=== PATIENT | male | born 1945 | race Caucasian/White ===

== ENCOUNTER 2017-12-09 06:10 | Inpatient (IN) | payer MEDICARE, BC ==
[~2017-12-09] VITALS: Ht 5871 cm; Wt 86.4 kg
[~2017-12-09 06:10] MED LIST: APIX5TAB3 PO; ATOR40TA PO; CLOP75TA15 PO; FLO0.4C PO; HYDR-565 PO; LANS15CA10 PO; LEVO750T46 PO; LOSA50TA3 PO; NALO25TA PO; NITR0.4T48 SL; PREG200C PO; ZOLP10TA PO
[2017-12-09] MEDS ORDERED: morphine 4 MG/ML inj SYRINge IV ONE ×2 (07:00→08:10)
[2017-12-09] MEDS ORDERED: pantoprazole 40 MG vial IV ONE (07:00)
[2017-12-09] MEDS ORDERED: normal saline 1000ML IV soln IVB ONE (07:00)
[2017-12-09] MEDS ORDERED: metoclopramide 5 mg/ml inj IV ONE (07:25)
[2017-12-09] MEDS ORDERED: proCHLORperazine 10 MG/2 ml inj IV ONE (07:30)
[2017-12-09 08:26] LABS: BASOPHILS % (AUTO) 0 % (0-1); EOSINOPHILS # (AUTO) 0.1 X10'3 (0-0.9); EOSINOPHILS % (AUTO) 1.2 % (0-6); HEMATOCRIT 43.6 % (42.0-52.0); HEMOGLOBIN 14.4 g/dl (14.0-17.9); LYMPHOCYTES # (AUTO) 0.4 X10'3 (1.1-4.8); LYMPHOCYTES % (AUTO) 3.2 % (21-51); MEAN CORPUSCULAR HEMOGLOBIN 28.8 PG (27.0-31.0); MEAN CORPUSCULAR HGB CONC 33.1 % (33.0-36.5); MEAN CORPUSCULAR VOLUME 87.2 FL (78-98); MEAN PLATELET VOLUME 7.9 FL (7.4-10.4); MONOCYTES # (AUTO) 0.3 X10'3 (0-0.9); MONOCYTES % (AUTO) 2.7 % (2-12); NEUTROPHILS # (AUTO) 10.4 X10'3 (1.8-7.7); NEUTROPHILS % (AUTO) 92.9 % (42-75); PLATELET COUNT 216 X10'3 (140-440); RED CELL DISTRIBUTION WIDTH 18.2 % (11.5-14.5); WHITE BLOOD COUNT 11.2 X10'3 (4.5-11.0)
[2017-12-09 08:43] LABS: ALANINE AMINOTRANSFERASE 28 U/L (12-78); ALBUMIN 3.9 G/DL (3.4-5.0); ALBUMIN/GLOBULIN RATIO 1.3 (1.1-1.5); ALKALINE PHOSPHATASE 68 IU/L (46-116); ANION GAP 12 (8-16); ASPARTATE AMINO TRANSFERASE 31 U/L (10-37); BILIRUBIN,TOTAL 0.3 MG/DL (0.1-1.0); BLOOD UREA NITROGEN 24 MG/DL (7-18); BUN/CREATININE RATIO 16.7 (5.4-32.0); CALCIUM 8.6 MG/DL (8.5-10.1); CHLORIDE 102 MMOL/L (99-107); CREATININE 1.44 MG/DL (0.60-1.10); GLUCOSE 109 MG/DL (70-104); LIPASE 175 U/L (73-393); POTASSIUM 4.3 MMOL/L (3.5-5.1); SODIUM 140 MMOL/L (135-145); TOTAL CARBON DIOXIDE 26.2 MMOL/L (24-32); eGFR 48 ML/MIN
[2017-12-09 08:44] LABS: INR 1.1 INR; PARTIAL THROMBOPLASTIN TIME 23 SECONDS (22-32); PROTHROMBIN TIME 11.4 SECONDS (9.0-12.0)
[2017-12-09 09:31] LABS: OCCULT BLOOD STOOL NEGATIVE (Neg)
[2017-12-09] MEDS ORDERED: MIRA50TA (10:53)
[2017-12-09] MEDS ORDERED: CELE-85 (10:53)
[2017-12-09] MEDS ORDERED: METO25TA6 (10:53)
[2017-12-09] MEDS ORDERED: ROSU40TA29 (10:53)
[2017-12-09] MEDS ORDERED: PANT40TA4 (10:53)
[2017-12-09] MEDS ORDERED: magnesium hydroxide 30ml (MOM) UD suspension PO PRN (11:35)
[2017-12-09] MEDS ORDERED: magnesium 4gm in 100ml NS 100 ML IV PRN (11:35)
[2017-12-09] MEDS ORDERED: ondansetron/PF 4mg/2ml inj IV PRN (11:35)
[2017-12-09] MEDS ORDERED: potassium Cl 40MEQ/NS 500ml 500 ML IV PRN ×2 (11:35)
[2017-12-09] MEDS ORDERED: magnesium Cl slow-release 64mg tablet PO PRN (11:35)
[2017-12-09] MEDS ORDERED: magnesium 2GM in 50ml NS 50 ML IV PRN (11:35)
[2017-12-09] MEDS ORDERED: mag hydrox/Alum hydrox/simeth 30ml oral suspension PO PRN (11:35)
[2017-12-09] MEDS ORDERED: potassium Cl 20 mEq SR tablet PO PRN ×2 (11:35)
[2017-12-09] MEDS: normal saline 1000ml 1,000 ML IV SCH (12:30)
[2017-12-09 13:04] LABS: CLARITY,URINE CLEAR (Clear); GLUCOSE, URINE NEGATIVE (Neg); KETONES,URINE TRACE mg/dl (Neg); LEUKOCYTE ESTERASE ,URINE NEGATIVE (Neg); NITRITES, URINE NEGATIVE (Neg); OCCULT BLOOD,URINE NEGATIVE (Neg); PROTEIN,URINE TRACE mg/dl (Neg); UROBILINOGEN,URINE 0.2 E.U/dL (0.2-1.0)
[2017-12-09 13:06] LABS: UA COLLECTION TYPE URINAL
[2017-12-09 13:07] LABS: COLOR,URINE DARK YELLOW (Yellow)
[2017-12-09 13:09] LABS: BACTERIA,URINE NONE SEEN /HPF (Neg); MUCUS STRANDS FEW /LPF (Neg); RBC,URINE 0-2 /HPF (0-2); SQUAMOUS EPITHELIAL CELL,UR FEW /LPF (FEW); WBC,URINE 0-4 /HPF (0-4)
[2017-12-09 13:10] LABS: COARSE GRANULAR CAST 0-3 /LPF (NEGATIVE)
[2017-12-09] MEDS ORDERED: morphine 2 MG/ML inj. syringe IV PRN (14:30)
[2017-12-09] MEDS: morphine 4 MG/ML inj SYRINge IV PRN ×3 (14:39→23:52)
[2017-12-09] MEDS ORDERED: heparin 10,000 units/1 ML INJ IV ONE (16:30)
[2017-12-09] MEDS ORDERED: heparin 10,000 units/1 ML INJ IV PRN (16:30)
[2017-12-09] MEDS: clopidogrel 75mg tablet PO SCH (17:04)
[2017-12-09] MEDS: tamsulosin 0.4mg capsule PO SCH (17:05)
[2017-12-09 17:16] LABS: CREATINE KINASE 114 U/L (39-308)
[2017-12-09 17:40] LABS: BASOPHILS % (AUTO) 0.1 % (0-1); EOSINOPHILS % (AUTO) 0.2 % (0-6); HEMATOCRIT 37.1 % (42.0-52.0); LYMPHOCYTES # (AUTO) 0.4 X10'3 (1.1-4.8); LYMPHOCYTES % (AUTO) 4.5 % (21-51); MEAN CORPUSCULAR HEMOGLOBIN 28.3 PG (27.0-31.0); MEAN CORPUSCULAR HGB CONC 32.4 % (33.0-36.5); MEAN CORPUSCULAR VOLUME 87.5 FL (78-98); MEAN PLATELET VOLUME 7.9 FL (7.4-10.4); MONOCYTES # (AUTO) 0.8 X10'3 (0-0.9); MONOCYTES % (AUTO) 9.4 % (2-12); NEUTROPHILS # (AUTO) 6.9 X10'3 (1.8-7.7); NEUTROPHILS % (AUTO) 85.8 % (42-75); PLATELET COUNT 173 X10'3 (140-440); RED BLOOD COUNT 4.23 X10'6 (4.70-6.10); RED CELL DISTRIBUTION WIDTH 18.1 % (11.5-14.5)
[2017-12-09 17:53] LABS: TOTAL CELLS COUNTED 100
[2017-12-09 17:55] LABS: ANISOCYTOSIS 2+; PLATELET ESTIMATE NORMAL
[2017-12-09 18:00] LABS: TOXIC GRANULATION 1+
[2017-12-09 18:11] LABS: INR 1.3 INR; PROTHROMBIN TIME 13.3 SECONDS (9.0-12.0)
[2017-12-09 18:13] LABS: PARTIAL THROMBOPLASTIN TIME > 153 SECONDS (22-32)
[2017-12-09] MEDS: pregabalin 25mg capsule PO SCH (20:48)
[2017-12-09] MEDS: pantoprazole 40mg Tablet.DR PO SCH (20:49)
[2017-12-09] MEDS: carvedilol 6.25mg tablet PO SCH (20:49)
[2017-12-09] MEDS: pregabalin 75mg capsule PO SCH (20:49)
[2017-12-09] MEDS: losartan 25mg tablet PO SCH (20:52)
[2017-12-09] MEDS ORDERED: non-formulary drug (Pregabalin (Lyrica) 1 CAP) PO SCH (21:00)
[2017-12-09 22:38] VITALS: BP 131/52
[2017-12-10] VITALS (9 sets, daily range): BP systolic 138–172; BP diastolic 40–74
[2017-12-10] MEDS: normal saline 1000ml 1,000 ML IV SCH ×2 (04:20→21:19)
[2017-12-10] MEDS: tamsulosin 0.4mg capsule PO SCH (07:47)
[2017-12-10] MEDS: clopidogrel 75mg tablet PO SCH (07:47)
[2017-12-10] MEDS: pantoprazole 40mg Tablet.DR PO SCH ×3 (07:47→21:01)
[2017-12-10] MEDS: carvedilol 6.25mg tablet PO SCH ×2 (07:47→21:03)
[2017-12-10] MEDS: morphine 4 MG/ML inj SYRINge IV PRN ×4 (07:48→23:23)
[2017-12-10] MEDS: K and/or MAG REPLACEMENT MC SCH (08:00)
[2017-12-10] MEDS: atorvastatin 20mg tablet PO SCH ×2 (08:00)
[2017-12-10 08:08] LABS: BASOPHILS % (AUTO) 0.2 % (0-1); EOSINOPHILS # (AUTO) 0.2 X10'3 (0-0.9); EOSINOPHILS % (AUTO) 2.2 % (0-6); HEMATOCRIT 33.4 % (42.0-52.0); HEMOGLOBIN 11.2 g/dl (14.0-17.9); LYMPHOCYTES # (AUTO) 0.6 X10'3 (1.1-4.8); LYMPHOCYTES % (AUTO) 8.1 % (21-51); MEAN CORPUSCULAR HGB CONC 33.4 % (33.0-36.5); MEAN CORPUSCULAR VOLUME 86.7 FL (78-98); MEAN PLATELET VOLUME 8.1 FL (7.4-10.4); MONOCYTES # (AUTO) 0.6 X10'3 (0-0.9); MONOCYTES % (AUTO) 8.7 % (2-12); NEUTROPHILS # (AUTO) 5.7 X10'3 (1.8-7.7); NEUTROPHILS % (AUTO) 80.8 % (42-75); PLATELET COUNT 151 X10'3 (140-440); RED BLOOD COUNT 3.85 X10'6 (4.70-6.10); RED CELL DISTRIBUTION WIDTH 17.6 % (11.5-14.5); WHITE BLOOD COUNT 7.1 X10'3 (4.5-11.0)
[2017-12-10 08:16] LABS: ALANINE AMINOTRANSFERASE 24 U/L (12-78); ALBUMIN 2.7 G/DL (3.4-5.0); ALKALINE PHOSPHATASE 41 IU/L (46-116); ANION GAP 11 (8-16); ASPARTATE AMINO TRANSFERASE 26 U/L (10-37); BILIRUBIN,TOTAL 0.3 MG/DL (0.1-1.0); BLOOD UREA NITROGEN 26 MG/DL (7-18); BUN/CREATININE RATIO 31.7 (5.4-32.0); CALCIUM 8.1 MG/DL (8.5-10.1); CHLORIDE 106 MMOL/L (99-107); CREATININE 0.82 MG/DL (0.60-1.10); GLUCOSE 107 MG/DL (70-104); MAGNESIUM 1.9 MG/DL (1.5-2.4); POTASSIUM 4.5 MMOL/L (3.5-5.1); SODIUM 141 MMOL/L (135-145); TOTAL CARBON DIOXIDE 23.9 MMOL/L (24-32); TOTAL PROTEIN 5.4 G/DL (6.4-8.2); eGFR > 90 ML/MIN
[2017-12-10] MEDS: acetaminophen 325mg tablet PO PRN ×2 (10:06→16:51)
[2017-12-10] MEDS: pregabalin 25mg capsule PO SCH (20:57)
[2017-12-10] MEDS: pregabalin 75mg capsule PO SCH (20:58)
[2017-12-10] MEDS: losartan 25mg tablet PO SCH (21:03)
[2017-12-11] MEDS: acetaminophen 325mg tablet PO PRN (00:26)
[2017-12-11 02:00] VITALS: BP 159/50
[2017-12-11] MEDS: morphine 4 MG/ML inj SYRINge IV PRN (04:10)
[2017-12-11 05:19] LABS: BASOPHILS % (AUTO) 0.3 % (0-1); EOSINOPHILS # (AUTO) 0.1 X10'3 (0-0.9); EOSINOPHILS % (AUTO) 2.5 % (0-6); HEMOGLOBIN 10.5 g/dl (14.0-17.9); LYMPHOCYTES # (AUTO) 0.5 X10'3 (1.1-4.8); LYMPHOCYTES % (AUTO) 7.7 % (21-51); MEAN CORPUSCULAR HEMOGLOBIN 28.6 PG (27.0-31.0); MEAN CORPUSCULAR HGB CONC 32.7 % (33.0-36.5); MEAN CORPUSCULAR VOLUME 87.5 FL (78-98); MEAN PLATELET VOLUME 8.6 FL (7.4-10.4); MONOCYTES # (AUTO) 0.5 X10'3 (0-0.9); MONOCYTES % (AUTO) 7.9 % (2-12); NEUTROPHILS # (AUTO) 4.8 X10'3 (1.8-7.7); NEUTROPHILS % (AUTO) 81.6 % (42-75); PLATELET COUNT 159 X10'3 (140-440); RED BLOOD COUNT 3.66 X10'6 (4.70-6.10); RED CELL DISTRIBUTION WIDTH 17.8 % (11.5-14.5); WHITE BLOOD COUNT 5.9 X10'3 (4.5-11.0)
[2017-12-11 05:46] LABS: ALANINE AMINOTRANSFERASE 23 U/L (12-78); ALBUMIN 2.8 G/DL (3.4-5.0); ALKALINE PHOSPHATASE 42 IU/L (46-116); ANION GAP 9 (8-16); ASPARTATE AMINO TRANSFERASE 31 U/L (10-37); BILIRUBIN,TOTAL 0.4 MG/DL (0.1-1.0); BLOOD UREA NITROGEN 17 MG/DL (7-18); BUN/CREATININE RATIO 23.3 (5.4-32.0); CALCIUM 8.4 MG/DL (8.5-10.1); CHLORIDE 107 MMOL/L (99-107); CREATININE 0.73 MG/DL (0.60-1.10); GLUCOSE 106 MG/DL (70-104); MAGNESIUM 1.7 MG/DL (1.5-2.4); POTASSIUM 4.2 MMOL/L (3.5-5.1); SODIUM 139 MMOL/L (135-145); TOTAL CARBON DIOXIDE 22.9 MMOL/L (24-32); TOTAL PROTEIN 5.5 G/DL (6.4-8.2); eGFR > 90 ML/MIN
[2017-12-11 06:00] VITALS: BP 163/43
[2017-12-11] MEDS: pantoprazole 40mg Tablet.DR PO SCH ×2 (07:30→09:17)
[2017-12-11] MEDS: K and/or MAG REPLACEMENT MC SCH (08:00)
[2017-12-11] MEDS: atorvastatin 20mg tablet PO SCH ×2 (08:00→09:20)
[2017-12-11] MEDS: tamsulosin 0.4mg capsule PO SCH (09:15)
[2017-12-11] MEDS: losartan 25mg tablet PO SCH (09:16)
[2017-12-11] MEDS: clopidogrel 75mg tablet PO SCH (09:17)
[2017-12-11] MEDS: carvedilol 6.25mg tablet PO SCH (09:19)
[2017-12-11 11:00] VITALS: BP 166/64
== END 2017-12-11 15:50 | disposition home or self-care (01) | DRG 388 ==
LOC: ER 06:10 → ED HOLD 11:31 → EDBEDREQ 22:11 → EDBEDREQTM 22:11 → PCU 3S 22:40
PROVIDERS: ADMIT Internal Medicine; ATTEND Internal Medicine
DX: K56.609 Unspecified intestinal obstruction, unspecified as to partial versus complete obstruction (principal); N17.0 Acute kidney failure with tubular necrosis; I48.91 Unspecified atrial fibrillation; E78.5 Hyperlipidemia, unspecified; E86.0 Dehydration; I10 Essential (primary) hypertension; G89.29 Other chronic pain; R55 Syncope and collapse; I25.10 Atherosclerotic heart disease of native coronary artery without angina pectoris; N40.0 Benign prostatic hyperplasia without lower urinary tract symptoms; Z90.49 Acquired absence of other specified parts of digestive tract; Z95.1 Presence of aortocoronary bypass graft; Z79.01 Long term (current) use of anticoagulants; Z79.899 Other long term (current) drug therapy; Z91.018 Allergy to other foods
CPT/HCPCS: 36415; 71045; 73502; 74176; 80053; 81001; 82272; 82550; 83605; 83690; 83735; 83880; 84484; 85025; 85610; 85730; 86885; 86900; 86901; 87040; 87070; 93005; 93306; 93880; 96361; 96374; 96375; 96376; 99285; A6213; C9113; J0780; J1644; J2270; J7030

== ENCOUNTER 2018-03-19 09:34 | Inpatient (IN) | payer MEDICARE, BC ==
[~2018-03-19] VITALS: Ht 177.8 cm; Wt 79.0 kg
[~2018-03-19 09:34] MED LIST changes: -APIX5TAB3 PO; -LEVO750T46 PO; +MIRA50TA; -NITR0.4T48 SL; +PANT40TA4
[2018-03-19] MEDS ORDERED: vancomycin inj 1,000 MG in normal saline 250ml IV soln 250 ML IV STA (10:06)
[2018-03-19] MEDS ORDERED: levoFLOXACIN-Levaquin 750MG/D5 150 ML IV STA (10:06)
[2018-03-19] MEDS ORDERED: normal saline 1000ML IV soln IVB ONE (10:10)
[2018-03-19] MEDS ORDERED: METO25TA6 PO (10:16)
[2018-03-19] MEDS ORDERED: ROSU5TAB PO (10:17)
[2018-03-19] MEDS ORDERED: CELE-193 PO (10:18)
[2018-03-19] MEDS ORDERED: APIX5TAB3 PO (10:19)
[2018-03-19] MEDS ORDERED: vancomycin/NS 1 GM ADD-VANTAGE 250 ML IV STA (10:33)
[2018-03-19 10:38] LABS: BASOPHILS % (AUTO) 0.1 % (0-1); EOSINOPHILS # (AUTO) 0.1 X10'3 (0-0.9); EOSINOPHILS % (AUTO) 1.5 % (0-6); HEMATOCRIT 29.6 % (42.0-52.0); HEMOGLOBIN 9.8 g/dl (14.0-17.9); LYMPHOCYTES # (AUTO) 0.2 X10'3 (1.1-4.8); LYMPHOCYTES % (AUTO) 2.5 % (21-51); MEAN CORPUSCULAR HEMOGLOBIN 28.7 PG (27.0-31.0); MEAN CORPUSCULAR VOLUME 86.9 FL (78-98); MEAN PLATELET VOLUME 8.2 FL (7.4-10.4); MONOCYTES # (AUTO) 0.4 X10'3 (0-0.9); MONOCYTES % (AUTO) 3.9 % (2-12); NEUTROPHILS # (AUTO) 8.9 X10'3 (1.8-7.7); PLATELET COUNT 172 X10'3 (140-440); RED CELL DISTRIBUTION WIDTH 19.2 % (11.5-14.5); WHITE BLOOD COUNT 9.7 X10'3 (4.5-11.0)
[2018-03-19 10:47] LABS: INR 1.1 INR; PARTIAL THROMBOPLASTIN TIME 35 SECONDS (22-32); PROTHROMBIN TIME 11.1 SECONDS (9.0-12.0)
[2018-03-19 11:03] LABS: ALANINE AMINOTRANSFERASE 20 U/L (12-78); ALBUMIN 2.7 G/DL (3.4-5.0); ALBUMIN/GLOBULIN RATIO 0.8 (1.1-1.5); ALKALINE PHOSPHATASE 61 IU/L (46-116); ANION GAP 7 (8-16); ASPARTATE AMINO TRANSFERASE 37 U/L (10-37); BILIRUBIN,TOTAL 0.3 MG/DL (0.1-1.0); BLOOD UREA NITROGEN 35 MG/DL (7-18); BUN/CREATININE RATIO 26.5 (5.4-32.0); CALCIUM 8.4 MG/DL (8.5-10.1); CHLORIDE 103 MMOL/L (99-107); CREATININE 1.32 MG/DL (0.60-1.10); GLUCOSE 105 MG/DL (70-104); POTASSIUM 3.7 MMOL/L (3.5-5.1); SODIUM 141 MMOL/L (135-145); TOTAL CARBON DIOXIDE 30.7 MMOL/L (24-32); TOTAL PROTEIN 6.3 G/DL (6.4-8.2); eGFR 53 ML/MIN
[2018-03-19] MEDS ORDERED: acetaminophen 325mg tablet ONE (11:12)
[2018-03-19 11:29] LABS: CLARITY,URINE CLEAR (Clear); COLOR,URINE YELLOW (Yellow); GLUCOSE, URINE NEGATIVE (Neg); KETONES,URINE NEGATIVE (Neg); LEUKOCYTE ESTERASE ,URINE NEGATIVE (Neg); NITRITES, URINE NEGATIVE (Neg); OCCULT BLOOD,URINE NEGATIVE (Neg); PROTEIN,URINE 30 mg/dl (Neg); UROBILINOGEN,URINE 0.2 E.U/dL (0.2-1.0)
[2018-03-19 11:30] LABS: UA COLLECTION TYPE CLN CATCH MIDSTREAM
[2018-03-19 11:39] LABS: D-DIMER 1.32 MG/L FEU (0-0.50)
[2018-03-19 11:40] LABS: BACTERIA,URINE NONE SEEN /HPF (Neg); RBC,URINE 0-2 /HPF (0-2); SQUAMOUS EPITHELIAL CELL,UR FEW /LPF (FEW); WBC,URINE 0-4 /HPF (0-4)
[2018-03-19] MEDS ORDERED: iohexol 350MG/ML 100ml bottle IV ONE (12:29)
[2018-03-19] MEDS ORDERED: aspirin 325mg tablet PO ONE (12:35)
[2018-03-19 13:14] LABS: CHOL/HDL RATIO 2.2 (0.00-4.99); CHOLESTEROL 76 MG/DL (0-200); HDL CHOLESTEROL 35 MG/DL (35-60); LDL CHOLESTEROL 30 MG/DL (50-100); TRIGLYCERIDES 54 MG/DL (20-135)
[2018-03-19] MEDS ORDERED: acetaminophen 325mg tablet PO PRN (13:25)
[2018-03-19] MEDS ORDERED: mag hydrox/Alum hydrox/simeth 30ml oral suspension PO PRN (13:25)
[2018-03-19] MEDS ORDERED: magnesium hydroxide 30ml (MOM) UD suspension PO PRN (13:25)
[2018-03-19] MEDS ORDERED: ondansetron/PF 4mg/2ml inj IV PRN (13:25)
[2018-03-19] MEDS ORDERED: morphine 4 MG/ML inj SYRINge IV PRN (13:25)
[2018-03-19 14:16] LABS: MAGNESIUM 2.1 MG/DL (1.5-2.4); PHOSPHORUS 2.4 MG/DL (2.3-4.5)
[2018-03-19] MEDS: morphine 4 MG/ML inj SYRINge IV PRN ×2 (17:16→21:50)
[2018-03-19] MEDS ORDERED: enoxaparin 80mg/0.8ml syringe SUBCUT ONE (18:40)
[2018-03-19 19:00] VITALS: BP 127/55
[2018-03-19] MEDS: furosemide 20 MG/2 ML vial IV SCH (19:40)
[2018-03-19] MEDS: metoprolol tartrate 25mg tablet PO SCH (19:40)
[2018-03-19] MEDS: pregabalin 25mg capsule PO SCH (21:48)
[2018-03-19] MEDS: zolpidem 5mg tablet PO PRN (22:30)
[2018-03-19 23:00] VITALS: BP 133/57
[2018-03-20 03:00] VITALS: BP 92/50
[2018-03-20 06:00] VITALS: BP 145/63
[2018-03-20 06:07] LABS: BASOPHILS % (AUTO) 0.1 % (0-1); EOSINOPHILS # (AUTO) 0.1 X10'3 (0-0.9); EOSINOPHILS % (AUTO) 0.7 % (0-6); HEMATOCRIT 25.8 % (42.0-52.0); HEMOGLOBIN 8.4 g/dl (14.0-17.9); LYMPHOCYTES # (AUTO) 0.4 X10'3 (1.1-4.8); LYMPHOCYTES % (AUTO) 5.1 % (21-51); MEAN CORPUSCULAR HEMOGLOBIN 28.2 PG (27.0-31.0); MEAN CORPUSCULAR HGB CONC 32.5 % (33.0-36.5); MEAN CORPUSCULAR VOLUME 86.7 FL (78-98); MEAN PLATELET VOLUME 9.1 FL (7.4-10.4); MONOCYTES # (AUTO) 0.6 X10'3 (0-0.9); MONOCYTES % (AUTO) 7.2 % (2-12); NEUTROPHILS # (AUTO) 7.4 X10'3 (1.8-7.7); NEUTROPHILS % (AUTO) 86.9 % (42-75); PLATELET COUNT 153 X10'3 (140-440); RED BLOOD COUNT 2.97 X10'6 (4.70-6.10); RED CELL DISTRIBUTION WIDTH 19.1 % (11.5-14.5); WHITE BLOOD COUNT 8.5 X10'3 (4.5-11.0)
[2018-03-20 06:18] LABS: ALBUMIN 2.2 G/DL (3.4-5.0); ANION GAP 10 (8-16); BLOOD UREA NITROGEN 28 MG/DL (7-18); BUN/CREATININE RATIO 26.9 (5.4-32.0); CALCIUM 8.4 MG/DL (8.5-10.1); CHLORIDE 106 MMOL/L (99-107); CREATININE 1.04 MG/DL (0.60-1.10); GLUCOSE 101 MG/DL (70-104); POTASSIUM 3.4 MMOL/L (3.5-5.1); SODIUM 141 MMOL/L (135-145); TOTAL CARBON DIOXIDE 25.5 MMOL/L (24-32); eGFR 70 ML/MIN
[2018-03-20] MEDS: aspirin 81mg tablet.DR PO SCH (08:00)
[2018-03-20] MEDS: furosemide 20 MG/2 ML vial IV SCH (08:49)
[2018-03-20] MEDS: levoFLOXACIN-Levaquin 750MG/D5 150 ML IV SCH (08:50)
[2018-03-20] MEDS: clopidogrel 75mg tablet PO SCH (08:53)
[2018-03-20] MEDS: tamsulosin 0.4mg capsule PO SCH (08:53)
[2018-03-20] MEDS: atorvastatin 20mg tablet PO SCH (08:53)
[2018-03-20] MEDS: metoprolol tartrate 25mg tablet PO SCH ×2 (08:53→20:33)
[2018-03-20] MEDS ORDERED: HYDROcodone/acetaminophen 10/325mg tab PO ONE (09:50)
[2018-03-20] MEDS: apixaban 5mg tablet PO SCH ×2 (10:00→20:32)
[2018-03-20 11:00] VITALS: BP 124/57
[2018-03-20] MEDS: (Naloxegol Oxalate (Movantik) 1 TAB) PO SCH (13:17)
[2018-03-20 15:00] VITALS: BP 126/72
[2018-03-20] MEDS: HYDROcodone/acetaminophen 10/325mg tab PO SCH ×2 (15:29→20:32)
[2018-03-20 19:00] VITALS: BP 157/60
[2018-03-20] MEDS: lactobacillus rhamnosus 10,000 MMU CELLS/CAPSULE PO SCH (20:33)
[2018-03-20] MEDS: pregabalin 25mg capsule PO SCH (20:33)
[2018-03-20] MEDS: zolpidem 5mg tablet PO PRN (22:08)
[2018-03-20 23:00] VITALS: BP 156/61
[2018-03-21 03:00] VITALS: BP 163/72
[2018-03-21 05:27] LABS: BASOPHILS % (AUTO) 0.2 % (0-1); EOSINOPHILS # (AUTO) 0.1 X10'3 (0-0.9); EOSINOPHILS % (AUTO) 0.8 % (0-6); HEMATOCRIT 26.1 % (42.0-52.0); HEMOGLOBIN 8.5 g/dl (14.0-17.9); LYMPHOCYTES # (AUTO) 0.5 X10'3 (1.1-4.8); LYMPHOCYTES % (AUTO) 6.6 % (21-51); MEAN CORPUSCULAR HEMOGLOBIN 28.4 PG (27.0-31.0); MEAN CORPUSCULAR HGB CONC 32.7 % (33.0-36.5); MEAN PLATELET VOLUME 8.8 FL (7.4-10.4); MONOCYTES # (AUTO) 0.5 X10'3 (0-0.9); MONOCYTES % (AUTO) 6.8 % (2-12); NEUTROPHILS # (AUTO) 6.3 X10'3 (1.8-7.7); NEUTROPHILS % (AUTO) 85.6 % (42-75); PLATELET COUNT 166 X10'3 (140-440); WHITE BLOOD COUNT 7.4 X10'3 (4.5-11.0)
[2018-03-21 06:00] VITALS: BP 156/75
[2018-03-21 06:04] LABS: ALBUMIN 2.3 G/DL (3.4-5.0); ANION GAP 12 (8-16); BLOOD UREA NITROGEN 26 MG/DL (7-18); BUN/CREATININE RATIO 25.5 (5.4-32.0); CALCIUM 8.6 MG/DL (8.5-10.1); CHLORIDE 105 MMOL/L (99-107); CREATININE 1.02 MG/DL (0.60-1.10); GLUCOSE 99 MG/DL (70-104); POTASSIUM 3.2 MMOL/L (3.5-5.1); SODIUM 143 MMOL/L (135-145); TOTAL CARBON DIOXIDE 25.6 MMOL/L (24-32); eGFR 71 ML/MIN
[2018-03-21] MEDS: atorvastatin 20mg tablet PO SCH (08:38)
[2018-03-21] MEDS: lactobacillus rhamnosus 10,000 MMU CELLS/CAPSULE PO SCH (08:38)
[2018-03-21] MEDS: levoFLOXACIN-Levaquin 750MG/D5 150 ML IV SCH (08:38)
[2018-03-21] MEDS: furosemide 20 MG/2 ML vial IV SCH (08:39)
[2018-03-21] MEDS: aspirin 81mg tablet.DR PO SCH (08:39)
[2018-03-21] MEDS: metoprolol tartrate 25mg tablet PO SCH (08:39)
[2018-03-21] MEDS: tamsulosin 0.4mg capsule PO SCH (08:39)
[2018-03-21] MEDS: apixaban 5mg tablet PO SCH (08:39)
[2018-03-21] MEDS: clopidogrel 75mg tablet PO SCH (08:39)
[2018-03-21] MEDS: HYDROcodone/acetaminophen 10/325mg tab PO SCH (08:39)
[2018-03-21] MEDS: (Naloxegol Oxalate (Movantik) 1 TAB) PO SCH (08:45)
[2018-03-21] MEDS ORDERED: LEVO750T21 PO (08:55)
[2018-03-21] MEDS ORDERED: FURO-150 PO (08:55)
[2018-03-21 11:00] VITALS: BP 140/65
[2018-03-22] MEDS ORDERED: levoFLOXACIN 750MG TABLET PO SCH (11:00)
== END 2018-03-21 12:30 | disposition home or self-care (01) | DRG 871 ==
LOC: ER 09:34 → ED HOLD 13:22 → PCU 3S 16:05
PROVIDERS: ADMIT Internal Medicine; ATTEND Internal Medicine
DX: A41.9 Sepsis, unspecified organism (principal); I21.4 Non-ST elevation (NSTEMI) myocardial infarction; J18.9 Pneumonia, unspecified organism; G93.41 Metabolic encephalopathy; N17.9 Acute kidney failure, unspecified; E44.0 Moderate protein-calorie malnutrition; I25.10 Atherosclerotic heart disease of native coronary artery without angina pectoris; R55 Syncope and collapse; M19.90 Unspecified osteoarthritis, unspecified site; D50.9 Iron deficiency anemia, unspecified; I65.29 Occlusion and stenosis of unspecified carotid artery; I10 Essential (primary) hypertension; I48.0 Paroxysmal atrial fibrillation; G89.29 Other chronic pain; N40.0 Benign prostatic hyperplasia without lower urinary tract symptoms; E78.5 Hyperlipidemia, unspecified; Z96.653 Presence of artificial knee joint, bilateral; Z96.643 Presence of artificial hip joint, bilateral; Z95.1 Presence of aortocoronary bypass graft; Z95.5 Presence of coronary angioplasty implant and graft; Z79.02 Long term (current) use of antithrombotics/antiplatelets; Z79.82 Long term (current) use of aspirin; Z79.01 Long term (current) use of anticoagulants; Z79.899 Other long term (current) drug therapy; Z85.51 Personal history of malignant neoplasm of bladder; Z87.01 Personal history of pneumonia (recurrent); Z82.49 Family history of ischemic heart disease and other diseases of the circulatory system; Z68.25 Body mass index [BMI] 25.0-25.9, adult
CPT/HCPCS: 36415; 71045; 71275; 80048; 80053; 80061; 81001; 83605; 83735; 83880; 84100; 84145; 84484; 85025; 85379; 85610; 85730; 87040; 87070; 93005; 93306; 96365; 96366; 96368; 97110; 97116; 97161; 99285; J1650; J1940; J1956; J2270; J3370; J7030; Q9967

== ENCOUNTER 2018-06-29 09:17 | Inpatient (IN) | payer MEDICARE, BC ==
[~2018-06-29] VITALS: Ht 177.8 cm; Wt 89.3 kg
[~2018-06-29 09:17] MED LIST changes: +APIX5TAB3 PO; -ATOR40TA PO; +CELE-193 PO; +FURO-150 PO; -LANS15CA10 PO; +METO25TA6 PO; +ROSU5TAB PO
[2018-06-29] MEDS ORDERED: acetaminophen 325mg tablet PO ONE ×2 (09:25→10:40)
[2018-06-29 10:04] LABS: BASOPHILS # (AUTO) 0.1 X10'3 (0-0.2); BASOPHILS % (AUTO) 0.3 % (0-1); EOSINOPHILS # (AUTO) 0.1 X10'3 (0-0.9); EOSINOPHILS % (AUTO) 0.7 % (0-6); HEMATOCRIT 32.5 % (42.0-52.0); HEMOGLOBIN 10.8 g/dl (14.0-17.9); LYMPHOCYTES # (AUTO) 0.3 X10'3 (1.1-4.8); MEAN CORPUSCULAR HEMOGLOBIN 27.9 PG (27.0-31.0); MEAN CORPUSCULAR HGB CONC 33.1 % (33.0-36.5); MEAN CORPUSCULAR VOLUME 84.3 FL (78-98); MEAN PLATELET VOLUME 7.4 FL (7.4-10.4); MONOCYTES # (AUTO) 0.6 X10'3 (0-0.9); MONOCYTES % (AUTO) 3.5 % (2-12); NEUTROPHILS % (AUTO) 93.5 % (42-75); PLATELET COUNT 214 X10'3 (140-440); RED BLOOD COUNT 3.86 X10'6 (4.70-6.10); WHITE BLOOD COUNT 17.1 X10'3 (4.5-11.0)
[2018-06-29 10:19] LABS: ALANINE AMINOTRANSFERASE 24 U/L (12-78); ALBUMIN 3.1 G/DL (3.4-5.0); ALBUMIN/GLOBULIN RATIO 1.1 (1.1-1.5); ALKALINE PHOSPHATASE 55 IU/L (46-116); ANION GAP 10 (8-16); ASPARTATE AMINO TRANSFERASE 26 U/L (10-37); BILIRUBIN,TOTAL 0.3 MG/DL (0.1-1.0); BLOOD UREA NITROGEN 25 MG/DL (7-18); BUN/CREATININE RATIO 19.7 (5.4-32.0); CALCIUM 8.6 MG/DL (8.5-10.1); CHLORIDE 100 MMOL/L (99-107); CREATININE 1.27 MG/DL (0.60-1.10); GLUCOSE 105 MG/DL (70-104); POTASSIUM 3.8 MMOL/L (3.5-5.1); SODIUM 136 MMOL/L (135-145); TOTAL CARBON DIOXIDE 26.2 MMOL/L (24-32); TOTAL PROTEIN 5.9 G/DL (6.4-8.2); eGFR 55 ML/MIN
[2018-06-29] MEDS ORDERED: CefTRIAXone 2gm/D5W 50ml 50 ML IV ONE (10:25)
[2018-06-29] MEDS ORDERED: levoFLOXACIN-Levaquin 750MG/D5 150 ML IV ONE (10:25)
[2018-06-29] MEDS ORDERED: azithromycin 250mg tablet PO ONE (10:25)
[2018-06-29] MEDS ORDERED: normal saline 1000ml 1,000 ML IV SCH (11:02)
[2018-06-29] MEDS ORDERED: HYDROcodone/acetaminophen 5mg/325mg tablet PO PRN (11:05)
[2018-06-29] MEDS ORDERED: magnesium hydroxide 30ml (MOM) UD suspension PO PRN (11:05)
[2018-06-29] MEDS ORDERED: magnesium Cl slow-release 64mg tablet PO PRN (11:05)
[2018-06-29] MEDS ORDERED: acetaminophen 325mg tablet PO PRN (11:05)
[2018-06-29] MEDS ORDERED: magnesium 4gm in 100ml NS 100 ML IV PRN (11:05)
[2018-06-29] MEDS ORDERED: magnesium 1gm/100ml D5W IVPB 100 ML IV PRN (11:05)
[2018-06-29] MEDS ORDERED: potassium Cl 20 mEq SR tablet PO PRN ×2 (11:05)
[2018-06-29] MEDS ORDERED: morphine 2 MG/ML inj. syringe IV PRN (11:05)
[2018-06-29] MEDS ORDERED: ondansetron/PF 4mg/2ml inj IV PRN (11:05)
[2018-06-29] MEDS ORDERED: potassium Cl 40MEQ/NS 500ml 500 ML IV PRN ×2 (11:05)
[2018-06-29] MEDS ORDERED: mag hydrox/Alum hydrox/simeth 30ml oral suspension PO PRN (11:05)
[2018-06-29 15:00] VITALS: BP 125/59
[2018-06-29 18:00] VITALS: BP 133/59
[2018-06-29] MEDS ORDERED: HYDROcodone/acetaminophen 10/325mg tab PO PRN (20:15)
[2018-06-29] MEDS: HYDROcodone/acetaminophen 10/325mg tab PO PRN (20:54)
[2018-06-29] MEDS: temazepam 15mg capsule PO PRN ×2 (21:46→23:23)
[2018-06-29 22:00] VITALS: BP 130/58
[2018-06-30 02:00] VITALS: BP 123/75
[2018-06-30] MEDS: HYDROcodone/acetaminophen 10/325mg tab PO PRN ×2 (04:06→09:27)
[2018-06-30] MEDS ORDERED: CefTRIAXone 2gm/D5W 50ml 50 ML IV SCH (08:00)
[2018-06-30] MEDS ORDERED: levoFLOXACIN 250mg tablet PO SCH (08:00)
[2018-06-30] MEDS ORDERED: K and/or MAG REPLACEMENT MC SCH (08:00)
[2018-06-30 08:07] LABS: BASOPHILS % (AUTO) 0.1 % (0-1); EOSINOPHILS # (AUTO) 0.2 X10'3 (0-0.9); HEMATOCRIT 31.4 % (42.0-52.0); HEMOGLOBIN 10.3 g/dl (14.0-17.9); LYMPHOCYTES # (AUTO) 0.5 X10'3 (1.1-4.8); LYMPHOCYTES % (AUTO) 4.1 % (21-51); MEAN CORPUSCULAR HEMOGLOBIN 28.1 PG (27.0-31.0); MEAN CORPUSCULAR HGB CONC 32.9 % (33.0-36.5); MEAN CORPUSCULAR VOLUME 85.5 FL (78-98); MEAN PLATELET VOLUME 7.8 FL (7.4-10.4); MONOCYTES # (AUTO) 0.7 X10'3 (0-0.9); NEUTROPHILS # (AUTO) 10.8 X10'3 (1.8-7.7); NEUTROPHILS % (AUTO) 87.8 % (42-75); PLATELET COUNT 207 X10'3 (140-440); RED BLOOD COUNT 3.67 X10'6 (4.70-6.10); RED CELL DISTRIBUTION WIDTH 20.2 % (11.5-14.5); WHITE BLOOD COUNT 12.3 X10'3 (4.5-11.0)
[2018-06-30 08:19] LABS: ALBUMIN 2.7 G/DL (3.4-5.0); ANION GAP 12 (8-16); BLOOD UREA NITROGEN 21 MG/DL (7-18); BUN/CREATININE RATIO 20.4 (5.4-32.0); CALCIUM 8.9 MG/DL (8.5-10.1); CHLORIDE 102 MMOL/L (99-107); CREATININE 1.03 MG/DL (0.60-1.10); GLUCOSE 115 MG/DL (70-104); POTASSIUM 3.7 MMOL/L (3.5-5.1); SODIUM 139 MMOL/L (135-145); TOTAL CARBON DIOXIDE 25.5 MMOL/L (24-32); eGFR 70 ML/MIN
[2018-06-30 08:35] LABS: ANISOCYTOSIS 2+; PLATELET ESTIMATE NORMAL
[2018-06-30] MEDS ORDERED: LEVO250T58 PO (10:59)
== END 2018-06-30 13:25 | disposition home or self-care (01) | DRG 871 ==
LOC: ER 09:17 → ED HOLD 11:02 → CMPBEDREQ 12:09 → PCU 3S 12:56
PROVIDERS: ADMIT Internal Medicine; ATTEND Internal Medicine
DX: A41.9 Sepsis, unspecified organism (principal); J18.1 Lobar pneumonia, unspecified organism; D63.8 Anemia in other chronic diseases classified elsewhere; E78.5 Hyperlipidemia, unspecified; G89.4 Chronic pain syndrome; M54.9 Dorsalgia, unspecified; I10 Essential (primary) hypertension; I25.10 Atherosclerotic heart disease of native coronary artery without angina pectoris; Z95.1 Presence of aortocoronary bypass graft; Z91.018 Allergy to other foods; Z98.61 Coronary angioplasty status; Z90.49 Acquired absence of other specified parts of digestive tract; Z79.899 Other long term (current) drug therapy; Z79.02 Long term (current) use of antithrombotics/antiplatelets; Z23 Encounter for immunization
CPT/HCPCS: 36415; 71046; 80048; 80053; 83605; 83735; 85025; 87040; 87070; 87077; 87185; 96365; 99285; J0696; J1956; J7030

== ENCOUNTER 2020-07-31 20:16 | Emergency (ER) | payer BC, MEDICARE ==
[~2020-07-31] VITALS: Ht 172.7 cm; Wt 86.4 kg
[~2020-07-31 20:16] MED LIST changes: +AMLO-93 PO; -CELE-193 PO; -CLOP75TA15 PO; -FURO-150 PO; +HYDR-4353 PO; -HYDR-565 PO; +ISOS10TA8; +LANS30CA56 PO; -LOSA50TA3 PO; -METO25TA6 PO; -NALO25TA PO; -PANT40TA4; -PREG200C PO; +PREG300C19; +ROSU40TA PO; -ROSU5TAB PO
[2020-07-31] MEDS ORDERED: normal saline 1000ML IV soln IVB ONE (20:40)
[2020-07-31] MEDS ORDERED: ondansetron/PF 4mg/2ml inj IV ONE (20:50)
[2020-07-31] MEDS ORDERED: HYDROcodone/acetaminophen 10/325mg tab PO ONE (21:00)
[2020-07-31 21:02] LABS: BASOPHILS % (AUTO) 0.4 % (0-1); EOSINOPHILS # (AUTO) 0.3 X10'3 (0-0.9); EOSINOPHILS % (AUTO) 2.3 % (0-6); HEMATOCRIT 36.5 % (42.0-52.0); HEMOGLOBIN 11.7 g/dl (14.0-17.9); LYMPHOCYTES # (AUTO) 0.5 X10'3 (1.1-4.8); LYMPHOCYTES % (AUTO) 3.8 % (21-51); MEAN CORPUSCULAR VOLUME 87.5 FL (78-98); MEAN PLATELET VOLUME 8.1 FL (7.4-10.4); MONOCYTES # (AUTO) 0.8 X10'3 (0-0.9); MONOCYTES % (AUTO) 6.9 % (2-12); NEUTROPHILS # (AUTO) 10.3 X10'3 (1.8-7.7); NEUTROPHILS % (AUTO) 86.6 % (42-75); PLATELET COUNT 261 X10'3 (140-440); RED BLOOD COUNT 4.17 X10'6 (4.70-6.10); RED CELL DISTRIBUTION WIDTH 18.1 % (11.5-14.5); WHITE BLOOD COUNT 11.9 X10'3 (4.5-11.0)
[2020-07-31 21:07] LABS: ALANINE AMINOTRANSFERASE 21 U/L (12-78); ALBUMIN 3.4 G/DL (3.4-5.0); ALBUMIN/GLOBULIN RATIO 1.2 (1.1-1.5); ALKALINE PHOSPHATASE 79 IU/L (46-116); ANION GAP 13 (8-16); ASPARTATE AMINO TRANSFERASE 28 U/L (10-37); BILIRUBIN,TOTAL 0.4 MG/DL (0.1-1.0); BLOOD UREA NITROGEN 25 MG/DL (7-18); CHLORIDE 100 MMOL/L (99-107); CREATININE 1.78 MG/DL (0.60-1.10); GLUCOSE 115 MG/DL (70-104); POTASSIUM 3.2 MMOL/L (3.5-5.1); SODIUM 139 MMOL/L (135-145); TOTAL CARBON DIOXIDE 26.5 MMOL/L (24-32); TOTAL PROTEIN 6.2 G/DL (6.4-8.2); eGFR 37 ML/MIN
[2020-07-31 21:10] LABS: LIPASE 165 U/L (73-393); MAGNESIUM 2.4 MG/DL (1.5-2.4); TROPONIN I < 0.04 NG/ML (0.0-0.05)
[2020-07-31] MEDS ORDERED: LOPE2CAP PO (21:49)
[2020-07-31] MEDS ORDERED: ONDA4TAB6 PO (21:49)
[2020-07-31] MEDS ORDERED: POTA20TA19 PO (21:49)
[2020-07-31 22:04] VITALS: BP 109/58
== END 2020-07-31 22:01 | disposition home or self-care (01) ==
LOC: ER 20:16
DX: A08.4 Viral intestinal infection, unspecified (principal); I25.10 Atherosclerotic heart disease of native coronary artery without angina pectoris; I10 Essential (primary) hypertension; G89.29 Other chronic pain; M54.9 Dorsalgia, unspecified; K56.609 Unspecified intestinal obstruction, unspecified as to partial versus complete obstruction; Z90.49 Acquired absence of other specified parts of digestive tract; Z98.890 Other specified postprocedural states; Z79.899 Other long term (current) drug therapy
CPT/HCPCS: 36415; 71045; 80053; 83690; 83735; 84145; 84484; 85025; 96374; 99284; J2405; J7030

== ENCOUNTER 2021-06-14 12:18 | Outpatient (CLI) | payer MEDICARE ==
[~2021-06-14 12:18] MED LIST changes: +LOPE2CAP PO; +ONDA4TAB6 PO; +amiodarone 50MG/ML inj IV ONE; +epiNEPHrine 0.1mg/ml 10ml syringe ONE; +magnesium sulf 1 GM/2 ML ONE; +naloxone 2mg/2ml inj ONE; +sodium bicarbonate (8.4%) 1 mEq/ml syringe ONE
[2021-06-14 13:10] LABS: BASOPHILS # (AUTO) 0.1 X10'3 (0-0.2); EOSINOPHILS # (AUTO) 0.2 X10'3 (0-0.9); EOSINOPHILS % (AUTO) 2.3 % (0-6); HEMATOCRIT 30.8 % (42.0-52.0); HEMOGLOBIN 9.4 g/dl (14.0-17.9); LYMPHOCYTES # (AUTO) 0.4 X10'3 (1.1-4.8); MEAN CORPUSCULAR HEMOGLOBIN 26.8 PG (27.0-31.0); MEAN CORPUSCULAR HGB CONC 30.4 g/dL (33.0-36.5); MEAN CORPUSCULAR VOLUME 88.3 FL (78-98); MEAN PLATELET VOLUME 8.3 FL (7.4-10.4); MONOCYTES # (AUTO) 0.6 X10'3 (0-0.9); NEUTROPHILS # (AUTO) 6.6 X10'3 (1.8-7.7); NEUTROPHILS % (AUTO) 83.7 % (42-75); PLATELET COUNT 215 X10'3 (140-440); RED BLOOD COUNT 3.49 X10'6 (4.70-6.10); RED CELL DISTRIBUTION WIDTH 27.4 % (11.5-14.5); WHITE BLOOD COUNT 7.9 X10'3 (4.5-11.0)
[2021-06-14 13:15] LABS: ALBUMIN 3.5 G/DL (3.4-5.0); ANION GAP 8 (8-16); BLOOD UREA NITROGEN 20 MG/DL (7-18); BUN/CREATININE RATIO 14.4 (5.4-32.0); CALCIUM 8.5 MG/DL (8.5-10.1); CHLORIDE 103 MMOL/L (99-107); CREATININE 1.39 MG/DL (0.60-1.10); GLUCOSE 96 MG/DL (70-104); SODIUM 139 MMOL/L (135-145); TOTAL CARBON DIOXIDE 27.9 MMOL/L (24-32); eGFR 49 ML/MIN
[2021-06-14 13:53] LABS: HYPOCHROMASIA 1+; PLATELET ESTIMATE NORMAL; POLYCHROMASIA 1+
[2021-06-14 13:54] LABS: ANISOCYTOSIS 3+
[2021-06-14 13:55] LABS: SCHISTOCYTES FEW; STOMATOCYTES FEW; TEAR DROP CELLS 1+
[2021-06-15] MEDS ORDERED: AMLO5TAB16 PO (13:34)
[2021-06-15] MEDS ORDERED: PREG200C28 PO (13:34)
[2021-06-15] MEDS ORDERED: LOSA1TAB36 PO (13:34)
[2021-06-15] MEDS ORDERED: METH-798 PO (13:40)
[2021-06-15] MEDS ORDERED: ALBU18HF2 (13:40)
[2021-06-15] MEDS ORDERED: NITR0.4T51 SL (13:40)
[2021-06-15] MEDS ORDERED: NALO25TA4 PO (13:40)
[2021-06-15] MEDS ORDERED: NALO25TA4 (13:40)
[2021-06-15] MEDS ORDERED: FURO-150 PO (13:41)
== END 2021-06-14 23:59 | disposition home or self-care (01) ==
LOC: LAB 12:18
PROVIDERS: ATTEND Internal Medicine Interventional Cardiology
DX: I25.810 Atherosclerosis of coronary artery bypass graft(s) without angina pectoris (principal); Z53.8 Procedure and treatment not carried out for other reasons
CPT/HCPCS: 36415; 80048; 85008; 85025; J0171; J2310; J3475

== ENCOUNTER 2021-06-15 12:38 | Inpatient (IN) | payer MEDICARE, OTHER ==
[2021-06-15] VITALS (15 sets, daily range): BP systolic 51–133; BP diastolic 29–68
[~2021-06-15] VITALS: Ht 172.7 cm; Wt 87.8 kg
[~2021-06-15 12:38] MED LIST changes: -amiodarone 50MG/ML inj IV ONE; -epiNEPHrine 0.1mg/ml 10ml syringe ONE; -magnesium sulf 1 GM/2 ML ONE; -naloxone 2mg/2ml inj ONE; -sodium bicarbonate (8.4%) 1 mEq/ml syringe ONE
[2021-06-15] MEDS ORDERED: verapamil 2.5 mg/ml inj IV ONE (12:41)
[2021-06-15] MEDS ORDERED: LIDOcaine 1% (10mg/ml)w/preservative injection 20ml MDV ONE (12:41)
[2021-06-15] MEDS ORDERED: fentaNYL/PF 50MCG/1 ML 2ML syringe ONE (12:41)
[2021-06-15] MEDS ORDERED: iohexol 350MG/ML 100ml bottle IV ONE ×2 (12:41→14:32)
[2021-06-15] MEDS ORDERED: midazolam 1 mg/ML 2ml injection ONE (12:41)
[2021-06-15] MEDS ORDERED: heparin 1,000unit/ml 10ml vial 10 ML ONE (12:41)
[2021-06-15] MEDS ORDERED: nitroGLYCERIN-Tridil 50MG/D5W 250 ML IV ONE (12:41)
[2021-06-15] MEDS ORDERED: PREG200C28 PO (13:34)
[2021-06-15] MEDS ORDERED: AMLO5TAB16 PO (13:34)
[2021-06-15] MEDS ORDERED: LOSA1TAB36 PO (13:34)
[2021-06-15] MEDS ORDERED: LIDOcaine/PRILOcaine 5gm cream TP ONE (13:40)
[2021-06-15] MEDS ORDERED: ALBU18HF2 (13:40)
[2021-06-15] MEDS ORDERED: NALO25TA4 PO (13:40)
[2021-06-15] MEDS ORDERED: diphenhydrAMINE 25mg capsule PO PRN (13:40)
[2021-06-15] MEDS ORDERED: METH-798 PO (13:40)
[2021-06-15] MEDS ORDERED: NITR0.4T51 SL (13:40)
[2021-06-15] MEDS ORDERED: normal saline 1,000 ML IV SCH (13:40)
[2021-06-15] MEDS ORDERED: LORazepam 0.5 MG tablet PO PRN (13:40)
[2021-06-15] MEDS ORDERED: NALO25TA4 (13:40)
[2021-06-15] MEDS ORDERED: FURO-150 PO (13:41)
[2021-06-15 14:08] LABS: PARTIAL THROMBOPLASTIN TIME 29 SECONDS (22-32)
[2021-06-15] MEDS ORDERED: nitroGLYCERIN 0.4mg SUBLingual tab SL ONE (14:59)
[2021-06-15] MEDS ORDERED: HYDROmorphone 1 mg/ml syringe ONE (15:08)
[2021-06-15] MEDS ORDERED: OXAZEpam 15mg capsule PO PRN (15:55)
[2021-06-15] MEDS ORDERED: proCHLORperazine 10 MG/2 ml inj IV PRN (15:55)
[2021-06-15] MEDS ORDERED: HYDROcodone/acetaminophen 5mg/325mg tablet PO PRN ×2 (15:55→17:50)
[2021-06-15] MEDS ORDERED: ondansetron/PF 4mg/2ml inj IV PRN ×2 (15:55→17:50)
[2021-06-15] MEDS ORDERED: HYDROcodone/acetaminophen 10/325mg tab PO PRN (15:55)
[2021-06-15] MEDS ORDERED: DOPamine 400mg/D5W 250ml 250 ML IV SCH (16:10)
[2021-06-15] MEDS ORDERED: morphine 2 MG/ML inj. syringe IV ONE (17:35)
[2021-06-15] MEDS ORDERED: morphine 4 MG/ML inj SYRINge IV PRN (17:50)
[2021-06-15] MEDS ORDERED: magnesium hydroxide 30ml (MOM) UD suspension PO PRN (17:50)
[2021-06-15] MEDS ORDERED: morphine 2 MG/ML inj. syringe IV PRN (17:50)
[2021-06-15] MEDS ORDERED: potassium Cl 20 mEq SR tablet PO PRN ×2 (17:50)
[2021-06-15] MEDS ORDERED: acetaminophen 325mg tablet PO PRN ×2 (17:50)
[2021-06-15] MEDS ORDERED: NORepinephrine 8mg/ 250ml NS 250 ML IV PRN (17:50)
[2021-06-15] MEDS ORDERED: normal saline 1000ml 1,000 ML IV SCH (17:50)
[2021-06-15] MEDS ORDERED: potassium Cl 40MEQ/1/2NS 520ml 520 ML IV PRN ×2 (17:50)
[2021-06-15] MEDS ORDERED: LIDOcaine 2% 10ml TOPICAL JELLY (Urojet) TP ONE (17:50)
[2021-06-15] MEDS ORDERED: potassium Cl 40MEQ/250ML bag 270 ML IV PRN ×2 (17:50)
--- NOTE | 2021-06-15 18:24 | NUR ---
Patient in room ICU 2042. I have received report from Libra OLIVER at bedside and had the opportunity to ask questions and assume patient care.
--- NOTE | 2021-06-15 19:35 | NUR ---
Patient went into agonal PEA Rhythm and stopped breathing, Anastasia and son Gonzalez at bedside, Montse Baron called CPR initiated see Montse Baron form, Dr. Santana also at bedside, at 1936 per request of Son Gonzalez and Anastasia CPR was stopped , son states patient wanted no heroics, Patient at 1936 with and Son at bedside. Per request of family body will go to [facility] [place], [place].
--- NOTE | 2021-06-15 19:37 | NUR ---
RN IS TO DOCUMENT YES TO ALL APPLICABLE AREAS Pronouncement of : 1. Time Physician Notified: 1936 Dr. Santana present at bedside 2. Date of :06/15/21 3. Time of : 1936 4. DNR/Withdraw life support documented: N/A 5. Monitor strip has been placed on chart: yes 6. Assessment process is of one-minute duration and includes following criteria: a) Patient is unresponsive to all stimuli: yes no response b) Pupils fixed and non-reactive: yes c) Auscultation of precordium reveals absence of heart tones: no heart tones d) Auscultation of lungs reveals absence of breath sounds: no breath e) Absence of blood pressure / all vital signs: no vital signs f) QRS complexes are not present on monitor / EKG strip: in chart asystole g) Pacer spikes without capture: N/A 4. Comments:
[2021-06-15] MEDS ORDERED: docusate sod 100mg capsule PO SCH (20:00)
--- NOTE | 2021-06-15 21:45 | NUR ---
Skyler came sampler pickup patient at 2143.
[2021-06-16] MEDS ORDERED: enoxaparin 40mg/0.4ml syringe SUBCUT SCH (08:00)
== END 2021-06-15 21:57 | DRG 287 ==
LOC: SSTAY O 12:38 → ICU 2S 17:30 → UNDOADMIN 17:30 → ICU 2S 17:55 → UNDODISIN 21:57
PROVIDERS: ADMIT Internal Medicine Critical Care Medicine; ATTEND Internal Medicine Interventional Cardiology
PROC: 02HV33Z Insertion of Infusion Device into Superior Vena Cava, Percutaneous Approach (ICD-10-PCS; principal; 2021-06-15)
PROC: 5A12012 Performance of Cardiac Output, Single, Manual (ICD-10-PCS; 2021-06-15)
PROC: B2111ZZ Fluoroscopy of Multiple Coronary Arteries using Low Osmolar Contrast (ICD-10-PCS; 2021-06-15)
PROC: 4A023N7 Measurement of Cardiac Sampling and Pressure, Left Heart, Percutaneous Approach (ICD-10-PCS; 2021-06-15)
DX: I25.110 Atherosclerotic heart disease of native coronary artery with unstable angina pectoris (principal); R57.8 Other shock; G89.29 Other chronic pain; I10 Essential (primary) hypertension; I46.9 Cardiac arrest, cause unspecified; I25.82 Chronic total occlusion of coronary artery; I48.0 Paroxysmal atrial fibrillation; Z96.612 Presence of left artificial shoulder joint; Z96.611 Presence of right artificial shoulder joint; N40.0 Benign prostatic hyperplasia without lower urinary tract symptoms; Z96.643 Presence of artificial hip joint, bilateral; Z96.653 Presence of artificial knee joint, bilateral; M54.9 Dorsalgia, unspecified; Z95.1 Presence of aortocoronary bypass graft; Z88.8 Allergy status to other drugs, medicaments and biological substances; Z91.018 Allergy to other foods; Z79.899 Other long term (current) drug therapy
CPT/HCPCS: 92950; 93459; C9607; 36415; 71045; 80048; 85008; 85025; 85610; 85730; 93005; 99152; 99153; A4620; A6258; C1725; C1751; C1760; C1769; C1894; G0378; J0171; J1170; J1265; J1644; J2001; J2250; J2270; J2310; J2405; J3010; J3475; J3490; J7030; Q9967